=== PATIENT | male | born 1970 | race Asian ===

== ENCOUNTER → 2018-10-08 | Outpatient (CLI) | payer OTHER | LOC: MHCPAIN 14:48 | DX: G89.29 Other chronic pain (principal); M47.817 Spondylosis without myelopathy or radiculopathy, lumbosacral region; M53.3 Sacrococcygeal disorders, not elsewhere classified | CPT/HCPCS: G0463 ==

== ENCOUNTER → 2018-10-15 | Outpatient (CLI) | payer OTHER | LOC: MHCPAIN 11:03 | DX: M47.817 Spondylosis without myelopathy or radiculopathy, lumbosacral region (principal); M54.16 Radiculopathy, lumbar region ==

== ENCOUNTER → 2018-11-07 | Outpatient (CLI) | payer OTHER | LOC: MHCPAIN 13:30 | DX: G89.29 Other chronic pain (principal); M47.817 Spondylosis without myelopathy or radiculopathy, lumbosacral region; M53.3 Sacrococcygeal disorders, not elsewhere classified | CPT/HCPCS: G0463 ==

== ENCOUNTER → 2019-04-01 | Outpatient (CLI) | payer OTHER | LOC: COL.PUL 02-27 13:00 | DX: R06.02 Shortness of breath (principal) | CPT/HCPCS: J7674 ==